=== PATIENT | female | born 1965 | race Caucasian/White ===

== ENCOUNTER 2017-02-26 06:49 | Day surgery (SDC) | payer BC ==
[2017-02-21 08:40] VITALS: BMI 27.3
[~2017-02-26 06:49] MED LIST: DEXAMETHASONE SOD PHOSPHATE 10 MG/ML 1 ML VIAL IV ONE; HYDROmorphone 1 MG/ML 1 ML SYRINGE IVP PRN; LACTATED RINGERS 1,000 ML IV SCH; LIDOCAINE 1% 20 ML VIAL (10MG/ML) FOR IV START INTRADERMA PRN; MIDAZOLAM 2 MG/2 ML VIAL IV PRN; ONDANSETRON 4 MG/2 ML VIAL IVP ONE; Pre Op ABX Message 1 EACH MISC MISCELLANE ONE; SCOPOLAMINE 1.5MG/72HR PATCH TRANSDERM ONE
[2017-02-26] MEDS ORDERED: ceFAZolin 2 GM in SODIUM CHLORIDE 0.9% 100 ML IVPB STA (08:29)
[2017-02-26] MEDS ORDERED: MIDAZOLAM 2 MG/2 ML VIAL ONE (08:41)
[2017-02-26] MEDS ORDERED: LIDOCAINE 1% INJ 10MG/ML (20 ML MDV) ONE (08:41)
[2017-02-26] MEDS ORDERED: ePHEDrine 50 MG/ML 1 ML AMP ONE (08:41)
[2017-02-26] MEDS ORDERED: PHENYLEPHRINE-0.9% NACL SYG 1 MG/10 ML SYRINGE ONE (08:41)
[2017-02-26] MEDS ORDERED: PROPOFOL 10 MG/ML 20 ML VIAL IV ONE (08:41)
[2017-02-26] MEDS ORDERED: fentaNYL (PF) 50 MCG/ML 2 ML AMP ONE (08:41)
[2017-02-26] MEDS ORDERED: SUCCINYLCHOLINE CHLORIDE 100 MG/5 ML SYR IV ONE (08:41)
[2017-02-26 10:55] VITALS: TEMP 98
[2017-02-26] MEDS ORDERED: ONDANSETRON 4 MG/2 ML VIAL IVP ONE (12:37)
[2017-02-26 12:47] VITALS: RESP 18
[2017-02-26 13:01] VITALS: BP 117/80; PULSE 76
--- NOTE | 2017-02-26 20:49 | OP ---
DATE OF SERVICE: 02/26/2017 SURGEON: MARY ASHBY MD PREOPERATIVE DIAGNOSES: 1. Acquired loss of right and left breast. 2. Personal history of ductal carcinoma in situ, bilateral breasts. 3. Acquired deformity of right and left reconstructive breasts. 4. Acquired loss, right and left breast inframammary folds. POSTOPERATIVE DIAGNOSES: 1. Acquired loss, right and left breast. 2. Personal history of bilateral ductal carcinoma in situ, bilateral breasts. 3. Acquired deformity of right and left reconstructive breasts. 4. Acquired loss, right and left breast inframammary folds. OPERATIVE PROCEDURES: 1. Replacement of left breast tissue steel sampler with silicone breast implant for left breast reconstruction. 2. Replacement of right breast tissue steel sampler with silicone breast implant for breast reconstruction. 3. Revision left reconstructed breast. 4. Revision right reconstructed breast. 5. Reconstruction of right and left breast inframammary folds via local advancement flaps, 58 sq cm. 6. Implantation of reconstructive grafts for right and left breast reconstruction. OPERATIVE INDICATIONS: The patient is a 51-year-old female who has undergone bilateral nipple-sparing mastectomy procedures for ductal carcinoma in situ. She elected to proceed with immediate breast reconstruction via tissue steel sampler technique and has completed subsequent outpatient expansion. Significant deformities of the reconstructive breasts are present, both causing asymmetry and distortion of shape and contour. The patient's inframammary folds have also been effaced and malpositioned by the mastectomy reconstructive processes. She is returning to surgery today for the second stage of her breast reconstruction, which will include replacement of tissue expanders, insertion of silicone breast implants, revision of right and left reconstructive breasts to improve shape and contour irregularities, and reconstruction of right and left inframammary folds via local advancement flaps. She understands the potential risks and complications of the procedure and has requested I perform the surgery. OPERATIVE PROCEDURE SUMMARY: The patient was seen in the pre-surgical area. Markings were made, procedure reviewed, all questions answered. She was transported to the operating room, where she was placed in supine position. Following induction of general endotracheal anesthesia, the patient was prepped and draped in the usual fashion. All surgery was performed under loupe magnification. The patient's prior mastectomy procedures were performed through a subareolar transverse incision on both sides. These areas were re-marked for the incisions for today's surgery. Surgery was initiated on the right side. Incision was made following the diagram placed, dividing the skin in full-thickness fashion followed by use of cauterization to divide subcutaneous tissue and then dissection of skin and subcutaneous tissue off the muscle flap layers, performed with cauterization to release contour irregularities that were present. Extensive dissection was required, hemostasis maintained with cautery. Lower transverse incision was then made through the muscle flap layer, exposing the steel sampler. The steel sampler was then ruptured and removed. The expansion cavity appeared normal. No granulation tissue or exudates. Cavity was irrigated. A complete capsulotomy incision was now made where the capsule joined the chest wall. Then multiple cruciate incisions were made through the capsule itself to release the structure. Additional dissection was performed medially to release tightness that was present in this area causing distortion of shape. This was accomplished with cautery and hemostasis maintained with cautery. Through the inferior capsulotomy incision the skin and subcutaneous tissue flap was then elevated measuring 15 cm transversely by 2 cm vertically. This was in preparation for the advancement flap for reconstruction of inframammary fold. Once created, the skin and subcutaneous tissue flap was advanced cephalad and secured to the chest wall periosteal rib tissue using several interrupted discreet locations with 2-0 Vicryl, creating a discreet right inframammary fold. Irrigation was performed. Hemostasis was excellent. The cavity was packed open with moistened laparotomy sponges. Attention was turned to the patient's left breast. Again following the transverse incision site as marked, skin was divided in a full-thickness fashion with a 10 blade scalpel. Cauterization was used to divide underlying subcutaneous tissue and then skin and subcutaneous tissues were dissected off the muscle flap fascial layers. Extensive dissection was required to release contour irregularities and to allow for optimal draping of the skin and subcutaneous tissue once the implant was placed. Hemostasis was maintained with cautery. Again a low transverse incision was made through the muscle flap layer, exposing the steel sampler. The steel sampler was ruptured and removed. The cavity was irrigated. A complete capsulotomy incision was made where the expansion capsule joined the chest wall, and multiple cruciate incisions through the expansion capsule were performed to release tightness. Additional dissection was performed medially as the capsule and muscle layers were tight there, allowing for more medial position of the breast reconstruction. Through the inferior capsulotomy incision, skin and subcutaneous tissue flap was elevated measuring 14 cm transversely by 2 cm vertically. The flap was elevated with cauterization and contained skin and subcutaneous tissue. Once created, it was advanced in cephalad fashion and then secured to the patient's periosteal rib tissue using interrupted 2-0 Vicryl in several locations, creating a discreet left inframammary fold with good symmetry to the right side. Irrigation was performed. Hemostasis was excellent. Several temporary breast implant sizers were opened on the field and placed into the reconstructive cavities on the right and left sides. Ultimately a 750 mL sizer appeared optimal. This was evaluated with the patient in the seated-up position. She was returned to supine position. Temporary breast implant sizers were removed from the field. Each cavity was re-irrigated. Hemostasis was excellent. Gloves were changed and the right-sided breast implant opened onto the field. The implant was from the [employer], reference #[id number], serial #[id number]. The device measured 750 mL in volume and was only handled by the surgeon. It was irrigated with saline and inserted in the reconstructive cavity. Once present, the muscle flap layer could not be approximated over the implant without causing significant creasing. Therefore SurgiMend reconstructive graft was opened onto the field and, as this was anticipated for the left side, at this point 2 pieces were opened measuring 10 x 15 cm, thin and fenestrated. They were soaked in room-temperature saline. The first piece of SurgiMend was placed on the right side and placed deep to the muscle flap layer over the implant and secured to the muscle flap layer, the cephalad portion, using interrupted 3-0 Vicryl. Then the SurgiMend was allowed for wrapping the lower pole of the implant in inferior sling technique and then was secured to the portion of muscle flap that remained just above the inframammary fold. Complete coverage was obtained without causing distortion of the implant in this manner. Irrigation was performed. Hemostasis was excellent. The incision was closed ( ) deep dermal layer using inverted interrupted 4-0 Monocryl. Gloves were again changed, the second breast implant opened on the field, also from the [employer], 750 mL in volume. Same reference number. The serial number for the left-sided device was [id number]. Device was only handled by the surgeon. After irrigating with saline, it was inserted in the reconstructive cavity. Once positioned, the SurgiMend was then placed and guided under the muscle flap tissue but over the implant and then also covered the lower pole of the implant. The SurgiMend was inset to the muscle flap layer using interrupted 3-0 Vicryl sutures. Complete coverage was obtained without distortion of the implant. Irrigation was performed. Hemostasis was excellent. This incision was now closed ( ) deep dermal layer using inverted interrupted 4-0 Monocryl. The superficial dermis and epidermis were closed on both sides with running 5-0 Prolene. Surgical field was cleansed with saline, dried, and postoperative bandages were placed using sterile one-inch paper tape, Kerlix squares secured paper tape and then positioning a size 3 mammary support with additional gauze padding. The patient was then awakened from her anesthetic, extubated and transferred to the recovery room in good condition with stable vital signs. There were no complications.
== END 2017-02-26 13:24 | disposition home or self-care (01) ==
LOC: OR 06:49
PROVIDERS: ATTEND Plastic Surgery
DX: Z42.1 Encounter for breast reconstruction following mastectomy (principal); N65.0 Deformity of reconstructed breast; Z90.13 Acquired absence of bilateral breasts and nipples; Z85.3 Personal history of malignant neoplasm of breast; R00.1 Bradycardia, unspecified; R01.1 Cardiac murmur, unspecified; Z88.8 Allergy status to other drugs, medicaments and biological substances; Z91.040 Latex allergy status; Z79.899 Other long term (current) drug therapy
CPT/HCPCS: 93005; 19342; J2250; J1100; J0690; J2405; J2001; J3010; J1170; J2370; J0330; J2704; 81025

== ENCOUNTER → 2017-04-08 | Outpatient (CLI) | payer BC ==
--- NOTE | 2017-04-09 07:14 | WWHP ---
DATE OF SERVICE: 04/08/2017 CHIEF COMPLAINT: The patient is here for her routine gynecologic exam. HPI: This is a 51-year-old G3, P3 with an LMP of 04/05/17. She states her periods have been fairly infrequent and unpredictable. She had periods in 02/02, 07/05 and 02/03. During the past 3 months, the periods have been about monthly. She states they have been fairly painful and crampy and she has taken Motrin for this. She is status post endometrial ablation but she has had periods since the ablation. She was found to have breast cancer and this was picked up by last year's mammogram. She ended up having a biopsy, which showed right carcinoma in situ. She decided to have bilateral mastectomies and carcinoma in situ was also found in the left breast. She did not require chemotherapy or radiation therapy. PAST MEDICAL HISTORY: Bilateral breast cancer, stage 0 diagnosed in 2016, not requiring adjuvant therapy and she is status post bilateral mastectomies. Also history of cardiac arrhythmia, mitral valve regurgitation and early glaucoma. MEDICATIONS: 1. Coreg 6.25 mg half tablet b.i.d. 2. Roseanna 1 daily. 3. Calcium with vitamin D3, 600 mg b.i.d. 4. Osteo Bi-Flex b.i.d. 5. Multivitamin daily. 6. Timoptic one drop in each eye daily. Allergies to MINOCIN and BENADRYL. PAST SURGICAL HISTORY: Endometrial ablation in 2005 by myself, breast biopsy, and bilateral mastectomies in 2015, bilateral silicone breast implants in 03/05, colonoscopy 2005. 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 She has no other history of STDs. SOCIAL HISTORY: She denies tobacco and drug use and has about 2 alcoholic drinks per month. 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 FAMILY HISTORY: Unchanged from the 2016 H&P. REVIEW OF SYSTEMS: She has lost about 10 pounds over the last year. She denies respiratory, cardiac, or GI problems. PHYSICAL EXAM: Blood pressure 130/86. Height 5 feet 4 inches. Weight 154 pounds. Temperature 98.5, pulse 54. This is a well-developed, well-nourished white female who is alert and oriented x3 in no acute distress. HEENT is within normal limits. NECK: Supple without mass or thyromegaly. CHEST AND LUNGS: Clear to auscultation. HEART: Regular rate and rhythm. Breasts are consistent with bilateral implants. Her fairly recent incisions are clean, dry and intact. There are no palpable masses or tenderness. Axillary exam is negative for adenopathy. BACK: Negative for CVA tenderness. ABDOMEN: Soft, nontender, without palpable masses. PELVIC EXAM: Normal external genitalia. Cervix and vagina appear normal. There is a grade 1 cystocele and grade 1 uterine prolapse at rest. There is also a grade 1 to 2 rectocele noted. The uterus is midposition, nongravid size and nontender. There are no palpable adnexal masses or tenderness. Rectovaginal exam is negative for mass or tenderness and is negative for occult blood. EXTREMITIES: Nontender. IMPRESSION: 1. A 51-year-old perimenopausal female with normal gynecologic exam. 2. History of bilateral breast cancer, stage 0 and she is status post bilateral nipple sparing mastectomies and has bilateral silicone implants. There is no evidence of recurrence. PLAN: 1. Pap smear was deferred, since she had a normal one last year. 2. Self-breast examination was discussed. 3. She was told by her surgeon that she will not require mammograms because of the bilateral mastectomies. 4. The patient will keep a menstrual calendar and call if she is having menstrual problems. 5. She will follow up with Dr. Lancaster regarding her breast cancer. 6. She will return in one year.
== END | disposition home or self-care (01) ==
LOC: WWCWWP 15:00
PROVIDERS: ATTEND Obstetrics & Gynecology
DX: Z53.9 Procedure and treatment not carried out, unspecified reason (principal)

== ENCOUNTER → 2017-07-24 | Outpatient (CLI) | payer BC ==
[2017-07-24 10:21] LABS: CH 31.4; CHCM 33.5; HCT 43.8 % (34.0-46.0); HDW 2.25; MCH 30.1 pg (25.0-35.0); MCV 94.3 fL (80.0-100.0); Mean Platelet Volume 9.7; RBC 4.65 m/uL (3.80-5.40); RDW 13.4 % (11.5-15.5); WBC 5.1 k/uL (3.8-10.6)
[2017-07-24 10:39] LABS: ALT 39 U/L (9-52); AST 29 U/L (14-36); Alkaline Phosphatase 75 U/L (38-126); Anion Gap 9 mmol/L; Blood Urea Nitrogen 20 mg/dL (7-17); Calcium 10.2 mg/dL (8.4-10.2); Carbon Dioxide 31 mmol/L (22-30); Chloride 103 mmol/L (98-107); Glucose 100 mg/dL (74-99); Non-African American GFR(MDRD) >60 (>60 ml/min/1.73 sqM); Sodium 143 mmol/L (137-145); Total Bilirubin 0.8 mg/dL (0.2-1.3); Total Protein 7.7 g/dL (6.3-8.2)
== END | disposition home or self-care (01) ==
LOC: LABWHC1 09:18
PROVIDERS: ATTEND Surgery
DX: Z15.01 Genetic susceptibility to malignant neoplasm of breast (principal)
CPT/HCPCS: 36415; 80053; 85027; 86300

== ENCOUNTER → 2018-05-06 | Outpatient (CLI) | payer BC ==
[2018-05-06 08:53] VITALS: BP 126/69; PULSE 52; TEMP 96.8; BMI 26.4
--- NOTE | 2018-05-06 09:45 | P.HPOB ---
History of Present Illness H&P Date: 05/06/18 Chief Complaint: The patient is here for her routine gynecologic exam. This is a 52-year-old G3 PIII with an LMP of 02/15/2018. Menses have been infrequent during the past 2 years. She has had 3 light menstrual periods over the past year in June 2017, December 2017 and her LMP. Each of these were light and lasted 5 or less days. She has had variable hot flashes during the year. Hot flashes were worse in July, but are improved more recently. She has had some cramping during the menses. She is without complaints. She has not been amenorrhea, for 12 months. She is status post endometrial ablation in the past. Review of Systems Weight has been stable. She denies respiratory, cardiac, or G.I. problems. Past Medical History Past Medical History: Cancer (Bilateral breast CIS status post bilateral mastectomies in 2015), Eye Disorder (Glaucoma) Additional Past Medical History / Comment(s): No adjuvant treatment for breast CA. mitral valve regurgitation, heart arrythmia. 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 No other history of STDs. History of Any Multi-Drug Resistant Organisms: None Reported Past Surgical History: Breast Surgery Additional Past Surgical History / Comment(s): reggie mastectomy 2015, Reggie breast silicone implants 2017, endometrial ablation 2005. Colonoscopy 2005. Past Anesthesia/Blood Transfusion Reactions: Family History of Problems w/ Anesthesia Additional Past Anesthesia/Blood Transfusion Reaction / Comment(s): Patient had hard time coming out of anesthesia; had to have Narcan. Pt's Mother had the same issue. Past Psychological History: No Psychological Hx Reported Smoking Status: Never smoker Past Alcohol Use History: Occasional (3 per week) Additional Past Alcohol Use History / Comment(s): Patient is a nonsmoker. No medical marijuana, marijuana or street drug use. She admits to social alcohol use. Past Drug Use History: None Reported Additional History: She's been since 1997. 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 - Past Family History Mother Family Medical History: Hypertension, Rheumatoid Arthritis (RA) Father Family Medical History: Hypertension Brother(s) Family Medical History: No Reported History Daughter(s) Family Medical History: No Reported History Son(s) Family Medical History: No Reported History Medications and Allergies Home Medications Medication Instructions Recorded Confirmed Type Calcium Carbonate/Vitamin D3 1 tab PO BID 05/20/16 02/26/17 History [Calcium 600-Vit D3 200 Tablet] Glucosamine/Chondr [place] A Sod [Osteo 1 tab PO BID 05/20/16 02/26/17 History Bi-Flex Caplet] Multivitamins, Thera [Multivitamin] 1 tab PO DAILY 05/20/16 02/26/17 History Carvedilol [Coreg] 3.125 mg PO BID 07/09/16 02/26/17 History Timolol 0.5% Ophth Gel Forming 1 drop BOTH EYES DAILY 07/09/16 02/26/17 History [Timoptic-Xe 0.5% Gel Form] Fexofenadine HCl [Roseanna Allergy] 180 mg PO DAILY 02/21/17 02/26/17 History Hydrocodone/Acetaminophen [[employer] 1 - 2 each PO Q6HR PRN #60 tab 02/26/17 Rx 5-325] Allergies Allergy/AdvReac Type Severity Reaction Status Date / Time latex Allergy Rash/Hives Verified 05/06/18 08:50 minocycline HCl Allergy Anaphylaxis Verified 05/06/18 08:50 [From Minocin] diphenhydramine HCl AdvReac paradoxical Verified 05/06/18 08:50 [From Benadryl] excitation Exam Vital Signs Temp Pulse BP 05/06/18 08:50 96.8 F L 52 L 126/69 Intake and Output 05/05/18 05/06/18 05/06/18 22:59 06:59 14:59 Other: Weight 69.853 kg This is a well-developed well-nourished white female who is alert and oriented times 3 in no acute distress. HEENT: Within normal limits. NECK: Supple without mass or thyromegaly. CHEST AND LUNGS: Clear to auscultation. HEART: Regular rate and rhythm. BREASTS: Are without mass or discharge. Breasts are consistent with bilateral implants. AXILLARY EXAM: Negative for adenopathy. BACK: Negative for CVA tenderness. ABDOMEN: Soft, nontender, without palpable masses. PELVIC EXAM: Normal external genitalia with minimal atrophy. Cervix and vagina appear normal minimal atrophy. There is no unusual discharge. There is a grade one cystocele and a grade one rectocele. The uterus is midposition, nongravid size and nontender. There are no palpable adnexal masses or tenderness. RECTAL EXAM: rectovaginal exam is negative for mass or tenderness and is negative for occult blood. EXTREMITIES: Nontender. IMPRESSION: 1. 52-year-old perimenopausal female with oligomenorrhea and intermittent vasomotor symptoms. 2. Asymptomatic grade 1 cystocele and grade 1 rectocele. 3. History of bilateral breast CIS status post bilateral mastectomies with reconstruction with bilateral silicone implants. No evidence of recurrence. PLAN: 1. Pap smear was performed. 2. The patient will continue to follow-up with Dr. Lancaster regarding her breast cancer history. Mammograms have been discontinued. 3. She will continue to keep up menstrual calendar. She will call if she's having greater menstrual irregularity, bleeding after 12 months of amenorrhea or polymenorrhea. 4. Osteoporosis prevention was discussed. 5. She will return in one year and PRN.
== END | disposition home or self-care (01) ==
LOC: WWCWWP 08:34
PROVIDERS: ATTEND Obstetrics & Gynecology
DX: Z53.9 Procedure and treatment not carried out, unspecified reason (principal)

== ENCOUNTER → 2018-07-23 | Outpatient (CLI) | payer BC ==
[2018-07-23 11:15] LABS: Basophils % (A) 1 %; Eosinophils # (A) 0.2 k/uL (0-0.7); Eosinophils % (A) 5 %; HCT 43.8 % (34.0-46.0); HGB 13.9 gm/dL (11.4-16.0); Lymphocytes # (A) 1.5 k/uL (1.0-4.8); Lymphocytes % (A) 31 %; MCH 29.8 pg (25.0-35.0); MCHC 31.8 g/dL (31.0-37.0); MCV 93.9 fL (80.0-100.0); Mean Platelet Volume 8.4; Monocytes # (A) 0.2 k/uL (0-1.0); Monocytes % (A) 4 %; Neutrophils # (A) 2.7 k/uL (1.3-7.7); Neutrophils % (A) 57 %; Platelet Count 240 k/uL (150-450); RBC 4.67 m/uL (3.80-5.40); RDW 12.3 % (11.5-15.5); WBC 4.7 k/uL (3.8-10.6)
[2018-07-23 11:23] LABS: ALT 57 U/L (9-52); AST 58 U/L (14-36); Albumin 4.2 g/dL (3.5-5.0); Alkaline Phosphatase 90 U/L (38-126); Anion Gap 7 mmol/L; Blood Urea Nitrogen 14 mg/dL (7-17); Calcium 10.1 mg/dL (8.4-10.2); Carbon Dioxide 31 mmol/L (22-30); Chloride 104 mmol/L (98-107); Glucose 97 mg/dL (74-99); Potassium 5.6 mmol/L (3.5-5.1); Sodium 142 mmol/L (137-145); Total Bilirubin 0.5 mg/dL (0.2-1.3); Total Protein 7.3 g/dL (6.3-8.2)
== END | disposition home or self-care (01) ==
LOC: LABWHC1 09:42
PROVIDERS: ATTEND Surgery
DX: C50.911 Malignant neoplasm of unspecified site of right female breast (principal)
CPT/HCPCS: 36415; 80053; 85025; 86300

== ENCOUNTER → 2018-07-30 | Outpatient (CLI) | payer BC ==
--- NOTE | 2018-07-30 15:08 | USB ---
Reason for exam: clinical finding. History: Patient has history of breast cancer at age 50. Reconstructions of both breasts, February 2017. Mastectomy of both breasts, June 2016. Malignant MG stereo VAD BX RT of the right breast, May 17, 2016. Physical Findings: Nurse Summary: Patient complains of fullness left axilla, palpated by Dr. Lynch's TOPPIECE CUTTER today, questionable nodule left 3 o'clock (nurse mj). US Breast Axilla RT Right limited breast ultrasound including focal area of concern, retroareolar and axilla demonstrates no cystic or solid lesion seen. These results were verbally communicated with the patient and result sheet given to the patient on 07/30/18. ASSESSMENT: Benign, BI-RAD 2 RECOMMENDATION: Clinical management of the right breast. Manage patient on a clinical basis.
--- NOTE | 2018-07-30 15:10 | USB ---
Reason for exam: clinical finding. History: Patient has history of breast cancer at age 50. Reconstructions of both breasts, February 2017. Mastectomy of both breasts, June 2016. Malignant MG stereo VAD BX RT of the right breast, May 17, 2016. Physical Findings: Nurse Summary: Patient complains of fullness left axilla, palpated by Dr. Lynch's BURNISHING MACHINE OPERATOR today, questionable nodule left 3 o'clock (nurse mj). US Breast Axilla LT Left limited breast ultrasound including focal area of concern, retroareolar and axilla demonstrates a 2.3 x 0.8cm oval, lymph node at axilla at BB, appears benign lymph node. Prominent implant valve 3 o'clock left breast. These results were verbally communicated with the patient and result sheet given to the patient on 07/30/18. ASSESSMENT: Benign, BI-RAD 2 RECOMMENDATION: Clinical management of the left breast. Manage patient on a clinical basis.
== END | disposition home or self-care (01) ==
LOC: RADUSWWP 14:14
PROVIDERS: ATTEND Internal Medicine Hematology & Oncology
DX: Z08 Encounter for follow-up examination after completed treatment for malignant neoplasm (principal); Z85.3 Personal history of malignant neoplasm of breast

== ENCOUNTER → 2018-08-04 | Outpatient (CLI) | payer BC ==
--- NOTE | 2018-08-04 14:16 | NM ---
EXAMINATION TYPE: NM bone scan whole body DATE OF EXAM: 08/04/2018 COMPARISON: NONE HISTORY: Breast cancer Delayed whole-body scanning was performed following the injection of 23.8 mCi Tc 99m MDP. Images acq uired 3 hours post injection. FINDINGS: Abnormal uptake involving the sternoclavicular joints, shoulders, knees, and feet is most typical of post arthritic change. There is slight curvature the spine with no suspicious reduced or increased uptake. Variation uptake involving the rib cage likely secondary to soft tissue artifact. There is increased uptake involving L5 likely degenerative. IMPRESSION: 1. No diagnostic evidence of metastases. Abnormal uptake at L5 likely is degenerative and could be co rrelated with x-ray as clinically warranted. 2. There is slightly heterogeneous pattern to the rib cage which likely is related to artifact with s oft tissue. If there is a pain involving the lower rib cage anteriorly correlate with x-ray.
== END | disposition home or self-care (01) ==
LOC: RADNMMAIN 09:55
PROVIDERS: ATTEND Internal Medicine Hematology & Oncology
DX: D05.11 Intraductal carcinoma in situ of right breast (principal); Z91.040 Latex allergy status
CPT/HCPCS: 78306; A9503

== ENCOUNTER → 2018-09-05 | Outpatient (CLI) | payer BC ==
--- NOTE | 2018-09-07 12:57 | PE ---
Nuclear medicine PET/CT HISTORY: Breast carcinoma, initial Patient received 11.4 mCi F-18 FDG intravenously in delayed scanning was performed from the skull bas e to the mid thighs. Localization and attenuation correction CT scan was performed. Correlation to bone scan 08/04/2018. Neck and chest: There is no evident supraclavicular cervical adenopathy. No evident axillary, hilar, or mediastinal adenopathy. No lung mass or suspicious hypermetabolic uptake. Bilateral breast prosthe ses are present. Surgical clips present in the right axilla. Abdomen pelvis: There is no ascites or retroperitoneal adenopathy. No evident lung mass. No evident l iver mass, no suspicious hypermetabolic uptake. Osseous structures are essentially normal, facet arthropathy is noted at the lower lumbar spine. IMPRESSION: No evident metastasis. No suspicious hypermetabolic uptake.
== END | disposition home or self-care (01) ==
LOC: RADPETMAIN 12:09
PROVIDERS: ATTEND Internal Medicine Hematology & Oncology
DX: D05.11 Intraductal carcinoma in situ of right breast (principal)
CPT/HCPCS: 78815; A9552

== ENCOUNTER → 2018-10-30 | Outpatient (CLI) | payer BC ==
--- NOTE | 2018-11-05 07:43 | USB ---
History: Patient has history of breast cancer at age 50. Reconstructions of both breasts, February 2017. Mastectomy of both breasts, June 2016. Malignant MG stereo VAD BX RT of the right breast, May 17, 2016. Physical Findings: Nurse did not find any significant physical abnormalities on exam. Patient states lteft axillary node stable in size. US Breast Axilla LT limited breast ultrasound including focal area of concern, retroareolar and axilla demonstrates a 2.7 x 1.0 x 1.2 cm axilla hyperechoic node. Previously measuring similar, essentially unchanged when measured in a similar fashion. These results were verbally communicated with the patient and result sheet given to the patient on 10/30/18. ASSESSMENT: Benign, BI-RAD 2 RECOMMENDATION: Clinical management. Routine screening mammogram.
== END | disposition home or self-care (01) ==
LOC: RADUSWWP 09:02
PROVIDERS: ATTEND Surgery
DX: N63.20 Unspecified lump in the left breast, unspecified quadrant (principal); Z85.3 Personal history of malignant neoplasm of breast; Z90.12 Acquired absence of left breast and nipple

== ENCOUNTER → 2018-12-16 | Day surgery (SDC) | payer BC ==
[2018-12-16 12:43] VITALS: RESP 16; TEMP 97.7; BMI 25.4
--- NOTE | 2018-12-16 13:46 | USB ---
ULTRASOUND GUIDED CORE BIOPSY LEFT AXILLA MASS: CLINICAL HISTORY: Left axilla lymph node FINDINGS: The procedure was explained to the patient. The risks, complications, benefits and alternatives were discussed and any questions were answered. Informed consent was obtained. Patient was placed supine on the ultrasound table and prepped and draped in the usual sterile fashion. Utilizing a exiting gauge needle, 3 passes were made into the requested left axilla lymph node. Surgical clip placed post procedure. Patient was stable throughout the procedure. Pathology is pending. All elements of maximal barrier and sterile technique were utilized. IMPRESSION: 1. Successful ultrasound guided core biopsy left axillary lymph node. Pathology pending. Pathology Results: Benign LEFT AXILLARY LESION, NEEDLE CORE BIOPSIES: Benign lymphoid tissue admixed with adipose tissue, negative for metastatic breast cancer. Recommendation Therapy of primary cancer. MTDD
[2018-12-16 14:47] VITALS: BP 144/80; PULSE 50
== END | disposition home or self-care (01) ==
LOC: RADUSWWP 12:25
PROVIDERS: ATTEND Surgery
DX: R92.8 Other abnormal and inconclusive findings on diagnostic imaging of breast (principal); Z85.3 Personal history of malignant neoplasm of breast; Z88.3 Allergy status to other anti-infective agents; Z91.040 Latex allergy status; Z88.8 Allergy status to other drugs, medicaments and biological substances
CPT/HCPCS: 88305; 38505; A4648; J2001

== ENCOUNTER → 2019-06-08 | Outpatient (CLI) | payer BC ==
[2019-06-08 11:16] VITALS: BP 131/77; PULSE 78; RESP 18; TEMP 98; BMI 26.2
--- NOTE | 2019-06-08 12:06 | P.HPOB ---
History of Present Illness H&P Date: 06/08/19 Chief Complaint: The patient is here for her routine gynecologic exam. This is a 53 year old G3 PIII with an LMP of 10/20/2018. Her LPMP was in April 2018. Prior to her last annual exam, she had 3 light menstrual periods. During the past 12 months, she had one bleeding episode 7 months ago. She has yet to go 12 full months without vaginal bleeding. She still experiences hot flashes but they seem to be improving. She is without gynecologic complaints. She is status post endometrial ablation in the past. Review of Systems The patient's weight has been stable over the last year. She denies respiratory, cardiac, or G.I. problems. 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 Mitral valve regurgitation, heart arrythmia, glaucoma. 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 No other history of STDs. History of Any Multi-Drug Resistant Organisms: None Reported Past Surgical History: Breast Surgery Additional Past Surgical History / Comment(s): reggie mastectomy 2015, Reggie breast silicone implants 2017, endometrial ablation 2005. Colonoscopy 2016(2nd). Left axillary lymph node biopsy 2018. Past Anesthesia/Blood Transfusion Reactions: Family History of Problems w/ Anesthesia Additional Past Anesthesia/Blood Transfusion Reaction / Comment(s): Patient had hard time coming out of anesthesia; had to have Narcan. Pt's Mother had the same issue. Past Psychological History: No Psychological Hx Reported Smoking Status: Never smoker Past Alcohol Use History: Occasional (5 per week) Additional Past Alcohol Use History / Comment(s): Patient is a nonsmoker. No medical marijuana, marijuana or street drug use. She admits to social alcohol use. Past Drug Use History: None Reported Additional History: She has been since 1997. 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 - Past Family History Mother Family Medical History: Hypertension, Rheumatoid Arthritis (RA) Father Family Medical History: Hypertension Brother(s) Family Medical History: No Reported History Daughter(s) Family Medical History: No Reported History Son(s) Family Medical History: No Reported History Medications and Allergies Home Medications Medication Instructions Recorded Confirmed Type Glucosamine/Chondr Chester A Sod [Osteo 1 tab PO BID 05/20/16 06/08/19 History Bi-Flex Caplet] Multivitamins, Thera [Multivitamin] 1 tab PO DAILY 05/20/16 06/08/19 History Timolol 0.5% Ophth Gel Forming 1 drop BOTH EYES DAILY 07/09/16 06/08/19 History [Timoptic-Xe 0.5% Gel Form] Fexofenadine HCl [Roseanna Allergy] 180 mg PO DAILY 02/21/17 06/08/19 History Vit C/E/Zn/Coppr/Lutein/Zeaxan 1 each PO DAILY 11/20/18 06/08/19 History [Preservision Areds 2 Softgel] Cyanocobalamin [Vitamin B-12] 500 mcg PO DAILY 06/08/19 06/08/19 History Allergies Allergy/AdvReac Type Severity Reaction Status Date / Time latex Allergy Rash/Hives Verified 06/08/19 11:16 minocycline HCl Allergy Anaphylaxis Verified 06/08/19 11:16 [From Minocin] diphenhydramine HCl AdvReac paradoxical Verified 06/08/19 11:16 [From Benadryl] excitation Exam Vital Signs Temp Pulse Resp BP Pulse Ox 06/08/19 11:13 98.0 F 78 18 131/77 98 Intake and Output 06/07/19 06/08/19 06/08/19 22:59 06:59 14:59 Other: Weight 69.4 kg Height 5'4", weight 153 pounds, BMI 26.3. This is a well-developed well-nourished white female who is alert and oriented times 3 in no acute distress. HEENT: Within normal limits. NECK: Supple without mass or thyromegaly. CHEST AND LUNGS: Clear to auscultation. HEART: Regular rate and rhythm. BREASTS: Are without mass or discharge. Breasts are consistent with bilateral mastectomies with bilateral implants. AXILLARY EXAM: Negative for adenopathy. BACK: Negative for CVA tenderness. ABDOMEN: Soft, nontender, without palpable masses. PELVIC EXAM: Normal external genitalia with minimal atrophy. Cervix and vagina appear normal with minimal atrophy. There is no unusual discharge. There is a grade one cystocele and grade 1 rectocele which are stable. The uterus is midposition, nongravid size and nontender. There are no palpable adnexal masses or tenderness. RECTAL EXAM: rectovaginal exam is negative for mass or tenderness and is negative for occult blood. EXTREMITIES: Nontender. IMPRESSION: 1. 53-year-old perimenopausal female with 7 months of amenorrhea and mild vasomotor symptoms. 2. History of bilateral breast CIS status post bilateral mastectomies in 2016. No evidence of recurrence on exam today. PLAN: 1. Pap smear was deferred since she had a normal one on 05/06/2018. 2. Self breast awareness was discussed with the patient. 3. Mammograms have been discontinued because of her history of bilateral mastectomies. 4. Osteoporosis prevention was discussed. I have stressed the importance of adequate calcium, vitamin D and regular exercise. Recommended amounts of calcium and vitamin D were also discussed. 5. She was advised to return in one year for her annual well woman exam.
== END | disposition home or self-care (01) ==
LOC: WWCWWP 10:58
PROVIDERS: ATTEND Obstetrics & Gynecology
DX: Z53.9 Procedure and treatment not carried out, unspecified reason (principal)

== ENCOUNTER → 2019-07-16 | Outpatient (CLI) | payer BC ==
--- NOTE | 2019-07-16 14:36 | XR ---
EXAM TYPE: LUMBAR SPINE X RAY SERIES COMPARISON: NONE HISTORY: Low back pain TECHNIQUE: Three views are submitted. FINDINGS: Alignment is anatomic. The pedicles are intact. The transverse processes are intact. There is grad e 1 anterolisthesis L4 on L5 with severe facet arthropathy at L4-5 and L5-S1. Moderate degenerative d isc disease levels. There is moderate facet arthropathy at L2-3 and L3-L4. No compression deformities IMPRESSION: 1. Multilevel degenerative disc disease with facet arthropathy and grade 1 anterolisthesis L4 on L5.
== END | disposition home or self-care (01) ==
LOC: RADXRMAIN 14:11
PROVIDERS: ATTEND Internal Medicine Geriatric Medicine
DX: M43.16 Spondylolisthesis, lumbar region (principal); M51.36 Other intervertebral disc degeneration, lumbar region; M46.96 Unspecified inflammatory spondylopathy, lumbar region
CPT/HCPCS: 72100

== ENCOUNTER → 2019-07-17 | Outpatient (CLI) | payer BC ==
[2019-07-17 09:56] LABS: Basophils % (A) 0 %; Eosinophils # (A) 0.1 k/uL (0-0.7); Eosinophils % (A) 2 %; HCT 39.3 % (34.0-46.0); HGB 13.5 gm/dL (11.4-16.0); Lymphocytes # (A) 1.9 k/uL (1.0-4.8); Lymphocytes % (A) 32 %; MCH 30.1 pg (25.0-35.0); MCHC 34.4 g/dL (31.0-37.0); MCV 87.4 fL (80.0-100.0); Mean Platelet Volume 7.5; Monocytes # (A) 0.2 k/uL (0-1.0); Monocytes % (A) 3 %; Neutrophils # (A) 3.6 k/uL (1.3-7.7); Neutrophils % (A) 61 %; Platelet Count 304 k/uL (150-450); RBC 4.49 m/uL (3.80-5.40); RDW 12.3 % (11.5-15.5); WBC 5.9 k/uL (3.8-10.6)
[2019-07-17 13:39] LABS: Erythrocyte Sedimentation Rate 12 mm/hr (0-20)
[2019-07-17 17:03] LABS: ALT 26 U/L (8-44); AST 28 U/L (13-35); African American GFR (CKD) 95.5 (60.0-200.0); Albumin/Globulin Ratio 1.95 (1.60-3.17); Alkaline Phosphatase 113 U/L (41-126); C Reactive Protein <0.4 mg/dL (0.0-0.8); Calcium 9.5 mg/dL (8.7-10.3); Carbon Dioxide 30.7 mmol/L (21.6-31.8); Chloride 105 mmol/L (96-109); Chol/HDL Ratio 4.76; Cholesterol 257 mg/dL (0-200); Globulin 2.2 g/dL (1.6-3.3); Glucose 93 mg/dL (70-110); LDL Cholesterol,Calculated 172.4 mg/dL (0.0-131.0); Potassium 4.3 mmol/L (3.5-5.5); Sodium 141 mmol/L (135-145); Total Bilirubin 0.6 mg/dL (0.3-1.2); Total Protein 6.5 g/dL (6.2-8.2)
[2019-07-17 17:10] LABS: Amylase 130 U/L (23-121)
== END | disposition home or self-care (01) ==
LOC: LABWHC1 08:49
PROVIDERS: ATTEND Internal Medicine Geriatric Medicine
DX: C50.919 Malignant neoplasm of unspecified site of unspecified female breast (principal); E83.52 Hypercalcemia; E78.2 Mixed hyperlipidemia; R10.9 Unspecified abdominal pain
CPT/HCPCS: 36415; 80053; 80061; 82150; 83690; 83970; 84439; 84443; 85025; 85652; 86140

== ENCOUNTER → 2019-07-28 | Outpatient (CLI) | payer BC ==
--- NOTE | 2019-07-28 16:53 | US ---
EXAMINATION TYPE: US abdomen complete DATE OF EXAM: 07/28/2019 COMPARISON: PET/CT September 05, 2018 CLINICAL HISTORY: R10.9 Abdominal Pain. Epigastric pain EXAM MEASUREMENTS: Liver Length: 12.6 cm Gallbladder Wall: 0.2 cm CBD: 0.3 cm Spleen: 10.1 cm Right Kidney: 8.7 x 4.6 x 3.9 cm Left Kidney: 9.0 x 4.4 x 4.7 cm Pancreas: wnl Liver: wnl Gallbladder: Multiple curves visualized Evidence for sonographic Ortega's sign: neg CBD: wnl Spleen: wnl Right Kidney: wnl Left Kidney: wnl Upper IVC: wnl Abd Aorta: Part of distal portion obscured by overlying bowel gas The liver is homogenous. The intrahepatic portion of the IVC and visualized abdominal aorta are with in normal limits. There is no evidence of shadowing mobile cholelithiasis. Common bile duct is unre markable. The visualized portions of the pancreas are homogenous. The spleen is unremarkable. Kidn eys are symmetric and free of hydronephrosis. No renal lesions are seen. IMPRESSION: No acute findings are evident.
== END | disposition home or self-care (01) ==
LOC: RADUSWWP 15:14
PROVIDERS: ATTEND Internal Medicine Geriatric Medicine
DX: R10.9 Unspecified abdominal pain (principal)
CPT/HCPCS: 76700

== ENCOUNTER → 2019-09-29 | Outpatient (CLI) | payer BC ==
--- NOTE | 2019-09-29 09:40 | CT ---
EXAMINATION TYPE: CT abdomen wo/w con DATE OF EXAM: 09/29/2019 COMPARISON: None HISTORY: Epigastric pain CT DLP: 1203.7 mGycm CONTRAST: CT scan of the abdomen is performed with Oral Contrast and without and with IV Contrast, patient inje cted with 100 mL of Isovue 300. FINDINGS: LUNG BASES-: No visible nodule. No infiltrate. Small hiatal hernia seen. LIVER/GB: No calcified gallstones. Hemangioma noted at the dome of the liver measuring approximate ly 1 cm. No additional hepatic space occupying lesions are seen at this time. No space occupying hepa tic lesion. Biliary tree is of normal caliber. PANCREAS: No inflammation. No distinct mass. SPLEEN: No splenic enlargement. No lesion seen. ADRENALS: No nodule. No thickening. KIDNEYS/BLADDER: No hydronephrosis. No nephrolithiasis. No distinct renal mass. Urinary bladder g rossly unremarkable. BOWEL: Visualized gastrointestinal tract is of normal caliber. No inflammatory process identified. LYMPH NODES: No greater than 1cm abdominal or pelvic lymph nodes are appreciated. AORTA: No significant abnormality. OSSEOUS STRUCTURES: No significant abnormality is seen. OTHER: No significant additional abnormality is seen. IMPRESSION: 1. Small hepatic hemangioma. 2. Small hiatal hernia.
== END ==
LOC: RADCTMAIN 07:59
PROVIDERS: ATTEND Internal Medicine Gastroenterology
DX: D18.03 Hemangioma of intra-abdominal structures (principal); K44.9 Diaphragmatic hernia without obstruction or gangrene
CPT/HCPCS: 74170; Q9967

== ENCOUNTER → 2020-06-21 | Outpatient (CLI) | payer BC ==
[2020-06-21 09:34] VITALS: BP 134/82; PULSE 59; RESP 18; TEMP 98
--- NOTE | 2020-06-21 10:09 | P.HPOB ---
History of Present Illness H&P Date: 06/21/20 Chief Complaint: The patient is here for her routine gynecologic exam. This is a 54-year-old with an LMP of April 2018. The patient states her hot flashes have been improving and are very tolerable at this time. She denies any postmenopausal bleeding. She is without gynecologic complaints. Review of Systems The patient has gained 13 pounds over the last year. She denies respiratory, cardiac, or G.I. problems. 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 Mitral valve regurgitation, heart arrythmia, glaucoma. 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 No other history of STDs. History of Any Multi-Drug Resistant Organisms: None Reported Past Surgical History: Breast Surgery Additional Past Surgical History / Comment(s): reggie mastectomy 2015, Reggie breast silicone implants 2016, endometrial ablation 2005. Colonoscopy 2016(2nd). Left axillary lymph node biopsy 2018. Upper endoscopy with removal of precancerous duodenal mass 2019. Past Anesthesia/Blood Transfusion Reactions: Family History of Problems w/ Anesthesia Additional Past Anesthesia/Blood Transfusion Reaction / Comment(s): Patient had hard time coming out of anesthesia; had to have Narcan. Pt's Mother had the same issue. Past Psychological History: No Psychological Hx Reported Smoking Status: Never smoker Past Alcohol Use History: Occasional (4. Week) Additional Past Alcohol Use History / Comment(s): Patient is a nonsmoker. No medical marijuana, marijuana or street drug use. She admits to social alcohol use. 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 - Past Family History Mother Family Medical History: Hypertension, Rheumatoid Arthritis (RA) Father Family Medical History: Hypertension Brother(s) Family Medical History: No Reported History Daughter(s) Family Medical History: No Reported History Son(s) Family Medical History: No Reported History Medications and Allergies Home Medications Medication Instructions Recorded Confirmed Type Glucosamine/Chondr Chester A Sod [Osteo 1 tab PO BID 05/20/16 06/21/20 History Bi-Flex Caplet] Multivitamins, Thera [Multivitamin] 1 tab PO DAILY 05/20/16 06/21/20 History Fexofenadine HCl [Rosaenna Allergy] 180 mg PO DAILY 02/21/17 06/21/20 History Vit C/E/Zn/Coppr/Lutein/Zeaxan 1 each PO DAILY 11/20/18 06/21/20 History [Preservision Areds 2 Softgel] Cyanocobalamin [Vitamin B-12] 500 mcg PO DAILY 06/08/19 06/21/20 History Cholecalciferol [Vitamin D3 (25 2,000 unit PO DAILY 06/21/20 06/21/20 History Mcg = 1000 Iu)] prednisoLONE ACETATE 1% OPHTH 1 drops BOTH EYES BID 06/21/20 06/21/20 History [Pred Forte 1%] Allergies Allergy/AdvReac Type Severity Reaction Status Date / Time latex Allergy Rash/Hives Verified 06/08/19 11:16 minocycline HCl Allergy Anaphylaxis Verified 06/08/19 11:16 [From Minocin] diphenhydramine HCl AdvReac paradoxical Verified 06/08/19 11:16 [From Benadryl] excitation Exam Vital Signs Temp Pulse Resp BP Pulse Ox 06/21/20 09:30 98.0 F 59 L 18 134/82 97 Intake and Output 06/20/20 06/21/20 06/21/20 22:59 06:59 14:59 Other: Weight 75.296 kg Height 5 feet 4 inches, weight 166 pounds, BMI 28.5. This is a well-developed well-nourished white female who is alert and oriented times 3 in no acute distress. HEENT: Within normal limits. NECK: Supple without mass or thyromegaly. CHEST AND LUNGS: Clear to auscultation. HEART: Regular rate and rhythm. BREASTS: Breasts are consistent with bilateral mastectomies with biateral implants and are without mass or discharge. AXILLARY EXAM: Negative for adenopathy. BACK: Negative for CVA tenderness. ABDOMEN: Soft, nontender, without palpable masses. PELVIC EXAM: Normal external genitalia with mild atrophy. Cervix and vagina appear normal with mild atrophy. There is no unusual discharge. There is a small grade 1-2 cystocele and grade 1-2 rectocele which is stable from her previous exams. The uterus is midposition, nongravid size and nontender. There are no palpable adnexal masses or tenderness. RECTAL EXAM: Rectovaginal exam is negative for mass or tenderness and is negative for occult blood. EXTREMITIES: Nontender. IMPRESSION: 1. 54-year-old menopausal female with stable grade 1-2 cystocele and rectocele and otherwise unremarkable gynecologic exam. 2. History of bilateral breast CIS in 2016, status post bilateral mastectomies and implants. No evidence of recurrence on exam. PLAN: 1. Pap smear was performed. 2. Self breast awareness was discussed with the patient. 3. Mammograms have been discontinued as of her bilateral mastectomies. 4. Osteoporosis prevention was discussed. I have stressed the importance of adequate calcium, vitamin D and regular exercise. Recommended amounts of calcium and vitamin D were also discussed. 5. She was advised to return in one year for her annual well woman exam.
--- NOTE | 2020-07-04 09:28 | P.PN ---
Progress Note - Text Progress Note Date: 07/04/20 OUTPATIENT FOLLOW-UP NOTE TEST(S)/RESULTS: Pap smear from 06/21/2020 was negative. METHOD OF NOTIFICATION: A message with this result was left on the patient's voicemail. PATIENT COMMENTS: DIAGNOSIS: Negative Pap smear DISCUSSION: PLAN: She was advised to return in one year for her annual well woman exam.
== END | disposition home or self-care (01) ==
LOC: WWCWWP 09:17
PROVIDERS: ATTEND Obstetrics & Gynecology
DX: Z53.9 Procedure and treatment not carried out, unspecified reason (principal)

== ENCOUNTER → 2021-08-28 | Outpatient (CLI) | payer BC ==
[2021-08-28 14:45] VITALS: BP 131/78; PULSE 64; RESP 16; TEMP 98.2
--- NOTE | 2021-08-28 15:51 | P.HPOB ---
History of Present Illness H&P Date: 08/28/21 Chief Complaint: The patient is here for her routine gynecologic exam. This is a 56-year-old with an LMP of 2018. The patient is without gynecologic complaints and denies any postmenopausal bleeding. Review of Systems The patient has gained 10 pounds over the last year. She denies respiratory, cardiac, or G.I. problems. 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 Mitral valve regurgitation, heart arrythmia, glaucoma. 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 No other history of STDs. History of Any Multi-Drug Resistant Organisms: None Reported Past Surgical History: Breast Surgery Additional Past Surgical History / Comment(s): reggie mastectomy 2015, Reggie breast silicone implants 2016, endometrial ablation 2005. Colonoscopy 2016(2nd). Left axillary lymph node biopsy 2018. 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 Past Anesthesia/Blood Transfusion Reactions: Family History of Problems w/ Anesthesia Additional Past Anesthesia/Blood Transfusion Reaction / Comment(s): Patient had hard time coming out of anesthesia; had to have Narcan. Pt's Mother had the same issue. Past Psychological History: No Psychological Hx Reported Smoking Status: Never smoker Past Alcohol Use History: Occasional (4 per week) Additional Past Alcohol Use History / Comment(s): Patient is a nonsmoker. No medical marijuana, marijuana or street drug use. She admits to social alcohol use. 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 - Past Family History Mother Family Medical History: Hypertension, Rheumatoid Arthritis (RA) Father Family Medical History: Hypertension Brother(s) Family Medical History: No Reported History Daughter(s) Family Medical History: No Reported History Son(s) Family Medical History: No Reported History Medications and Allergies Home Medications Medication Instructions Recorded Confirmed Type Glucosamine/Chondr Chester A Sod [Osteo 1 tab PO BID 05/20/16 08/28/21 History Bi-Flex Caplet] Multivitamins, Thera [Multivitamin] 1 tab PO DAILY 05/20/16 08/28/21 History Fexofenadine HCl [Roseanna Allergy] 180 mg PO DAILY 02/21/17 08/28/21 History Vit C/E/Zn/Coppr/Lutein/Zeaxan 1 each PO DAILY 11/20/18 08/28/21 History [Preservision Areds 2 Softgel] Cyanocobalamin [Vitamin B-12] 500 mcg PO DAILY 06/08/19 08/28/21 History Cholecalciferol [Vitamin D3 (25 2,000 unit PO DAILY 06/21/20 08/28/21 History Mcg = 1000 Iu)] Allergies Allergy/AdvReac Type Severity Reaction Status Date / Time latex Allergy Rash/Hives Verified 08/28/21 14:35 minocycline HCl Allergy Anaphylaxis Verified 08/28/21 14:35 [From Minocin] diphenhydramine HCl AdvReac paradoxical Verified 08/28/21 14:35 [From Benadryl] excitation Exam Vital Signs Temp Pulse Resp BP Pulse Ox 08/28/21 14:36 98.2 F 64 16 131/78 97 Intake and Output 08/28/21 08/28/21 08/28/21 06:59 14:59 22:59 Other: Weight 79.832 kg Height 5 feet 4 inches, weight 176 pounds, BMI 30.2. This is a well-developed well-nourished white female who is alert and oriented times 3 in no acute distress. HEENT: Within normal limits. NECK: Supple without mass or thyromegaly. CHEST AND LUNGS: Clear to auscultation. HEART: Regular rate and rhythm. BREASTS: Are without mass or discharge. Breasts are consistent with bilateral mastectomies with bilateral implants. AXILLARY EXAM: Negative for adenopathy. BACK: Negative for CVA tenderness. ABDOMEN: Soft, nontender, without palpable masses. PELVIC EXAM: Normal external genitalia with mild atrophy. Cervix and vagina appear normal with mild atrophy. There is no unusual discharge. There is no evidence of prolapse. The uterus is midposition, nongravid size and nontender. There are no palpable adnexal masses or tenderness. RECTAL EXAM: Rectovaginal exam is negative for mass or tenderness and is negative for occult blood. EXTREMITIES: Nontender. IMPRESSION: 1. 56-year-old menopausal female with normal gynecologic exam. 2. History of bilateral CIF of the breasts status post bilateral mastectomies with no evidence of recurrence. PLAN: 1. Pap smear was deferred since she had a negative one on 06/21/2020. 2. Self breast awareness was discussed with the patient. We have also discussed symptoms associated with inflammatory breast cancer. 3. Screening mammograms have been discontinued because of her bilateral mastectomies. 4. Osteoporosis prevention was discussed. I have stressed the importance of adequate calcium, vitamin D and regular exercise. Recommended amounts of calcium and vitamin D were also discussed. 5. She was advised to return in one year for her annual well woman exam.
== END | disposition home or self-care (01) ==
LOC: WWCWWP 14:14
PROVIDERS: ATTEND Obstetrics & Gynecology
DX: Z53.9 Procedure and treatment not carried out, unspecified reason (principal)

== ENCOUNTER → 2022-04-12 | Day surgery (SDC) | payer BC ==
[~2022-04-12] MED LIST changes: -DEXAMETHASONE SOD PHOSPHATE 10 MG/ML 1 ML VIAL IV ONE; -HYDROmorphone 1 MG/ML 1 ML SYRINGE IVP PRN; -LIDOCAINE 1% 20 ML VIAL (10MG/ML) FOR IV START INTRADERMA PRN; +LIDOCAINE 2% INJ 20 MG/ML (2 ML VIAL) ONE; -MIDAZOLAM 2 MG/2 ML VIAL IV PRN; -ONDANSETRON 4 MG/2 ML VIAL IVP ONE; +PROPOFOL 10 MG/ML 20 ML VIAL IV ONE; -Pre Op ABX Message 1 EACH MISC MISCELLANE ONE; -SCOPOLAMINE 1.5MG/72HR PATCH TRANSDERM ONE
[2022-04-12 06:45] VITALS: RESP 16; TEMP 97.3
--- NOTE | 2022-04-12 07:28 | P.PCN ---
Date of Procedure: 04/12/22 Procedure(s) Performed: BRIEF HISTORY: Patient is a 56-year-old pleasant white female scheduled for an elective colonoscopy as a part of surveillance evaluation of prior history of colon polyps. Last colonoscopy was 6 years ago. PROCEDURE PERFORMED: Colonoscopy. PREOPERATIVE DIAGNOSIS: History of colon polyps. IV sedation per Anesthesia. PROCEDURE: After informed consent was obtained, the patient, was brought into the endoscopy unit. IV sedation was administered by Anesthesia under continuous monitoring. Digital rectal examination was normal. Initially the Olympus CF-160 flexible video colonoscope was then inserted in the rectum, gradually advanced into the cecum without any difficulty. Careful examination was performed as the scope was gradually being withdrawn. Ileocecal valve and the appendiceal orifice were visualized and appeared normal. Prep was excellent. Mucosa of the cecum, ascending colon, transverse colon, descending colon, sigmoid colon, and rectum appeared normal. Retroflexion was performed in the rectum and no lesions were seen. The patient tolerated the procedure well. IMPRESSION: Normal-appearing colon from rectum to cecum with no evidence of colorectal neoplasia . RECOMMENDATIONS: Findings of this examination were discussed with the patient as well as her family. She was advised to have a repeat surveillance colonoscopy in 5 years from now because of the prior history of colon polyps
[2022-04-12 08:01] VITALS: BP 129/67; PULSE 68
== END ==
LOC: ORWHC2ENDO 05:53
PROVIDERS: ATTEND Internal Medicine Gastroenterology
DX: Z12.11 Encounter for screening for malignant neoplasm of colon (principal); Z86.010 Personal history of colon polyps; Z79.899 Other long term (current) drug therapy; Z88.8 Allergy status to other drugs, medicaments and biological substances; Z91.040 Latex allergy status; Z88.1 Allergy status to other antibiotic agents
CPT/HCPCS: J2704; J2001; G0105; 45378

== ENCOUNTER → 2023-04-15 | Outpatient (CLI) | payer BC ==
[2023-04-15 15:45] VITALS: BP 124/82; PULSE 76; RESP 16; TEMP 98.3
--- NOTE | 2023-04-15 16:47 | P.HPOB ---
History of Present Illness H&P Date: 04/15/23 Chief Complaint: The patient is here for her routine gynecologic exam. This is a 57-year-old with an LMP of 2018. The patient is without gynecologic complaints and denies any postmenopausal bleeding. Review of Systems The patient has lost 12 pounds over the last year. She denies respiratory, cardiac, or G.I. problems. 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 Mitral valve regurgitation, heart arrythmia, glaucoma. 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 No other history of STDs. History of Any Multi-Drug Resistant Organisms: None Reported Past Surgical History: Breast Surgery Additional Past Surgical History / Comment(s): reggie mastectomy 2015, Reggie breast silicone implants 2016, endometrial ablation 2005. Colonoscopy 2021(next after 5yr). Left axillary lymph node biopsy 2018. 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 Past Anesthesia/Blood Transfusion Reactions: Family History of Problems w/ Anesthesia Additional Past Anesthesia/Blood Transfusion Reaction / Comment(s): Patient had hard time coming out of anesthesia; had to have Narcan. Pt's Mother had the same issue. Past Psychological History: No Psychological Hx Reported Smoking Status: Never smoker Past Alcohol Use History: Occasional (3 per week) Additional Past Alcohol Use History / Comment(s): Patient is a nonsmoker. No medical marijuana, marijuana or street drug use. She admits to social alcohol use. Past Drug Use History: None Reported Additional History: She has been since 1997. 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 - Past Family History Mother Family Medical History: Hypertension, Rheumatoid Arthritis (RA) Additional Family Medical History / Comment(s): Maternal cousin had breast cancer. Father Family Medical History: Hypertension Brother(s) Family Medical History: No Reported History Daughter(s) Family Medical History: No Reported History Son(s) Family Medical History: No Reported History Medications and Allergies Home Medications Medication Instructions Recorded Confirmed Type Fexofenadine HCl [Roseanna Allergy] 180 mg PO DAILY 02/21/17 04/15/23 History Multi Vitamin No Iron ( Oa) 1 tab PO DAILY 04/11/22 04/15/23 History Allergies Allergy/AdvReac Type Severity Reaction Status Date / Time latex Allergy Rash/Hives Verified 04/15/23 15:42 minocycline HCl Allergy Anaphylaxis Verified 04/15/23 15:42 [From Minocin] diphenhydramine HCl AdvReac paradoxical Verified 04/15/23 15:42 [From Benadryl] excitation Exam Vital Signs Temp Pulse Resp BP Pulse Ox 04/15/23 15:42 98.3 F 76 16 124/82 99 Intake and Output 04/15/23 04/15/23 04/15/23 06:59 14:59 22:59 Other: Weight 74.389 kg Height 5 feet 4 inches, weight 164 pounds, BMI 28.2. This is a well-developed well-nourished white female who is alert and oriented times 3 in no acute distress. HEENT: Within normal limits. NECK: Supple without mass or thyromegaly. CHEST AND LUNGS: Clear to auscultation. HEART: Regular rate and rhythm. BREASTS: Are without mass or discharge. Breasts are consistent with bilateral reconstruction with implants. AXILLARY EXAM: Negative for adenopathy. BACK: Negative for CVA tenderness. ABDOMEN: Soft, nontender, without palpable masses. PELVIC EXAM: Normal external genitalia with mild atrophy. Cervix and vagina appear normal with mild atrophy. There is no unusual discharge. There is minimal prolapse in the form of a grade 1 cystocele and grade 1 rectocele. This is stable from her previous exam. The uterus is midposition, nongravid size and nontender. There are no palpable adnexal masses or tenderness. RECTAL EXAM: Rectovaginal exam is negative for mass or tenderness and is negative for occult blood. EXTREMITIES: Nontender. IMPRESSION: 1. 57-year-old menopausal female with stable grade 1 cystocele and grade 1 rectocele. 2. History of bilateral CIS of the breasts status post bilateral mastectomies with reconstruction. There is no evidence of recurrence on exam today. PLAN: 1. Pap smear cotest was performed. 2. Mammograms have been discontinued because of the bilateral mastectomies. 3. Osteoporosis prevention was discussed. I have stressed the importance of adequate calcium, vitamin D and regular exercise. Recommended amounts of calcium and vitamin D were also discussed. She states she had a normal bone density test several years ago. We will plan on doing a bone density test in 1 year at the age of 58. 4. She was advised to return in one year for her annual well woman exam.
== END ==
LOC: WWCWWP 15:38
PROVIDERS: ATTEND Obstetrics & Gynecology
DX: N95.1 Menopausal and female climacteric states (principal); Z42.1 Encounter for breast reconstruction following mastectomy; E78.5 Hyperlipidemia, unspecified; N81.10 Cystocele, unspecified; N81.6 Rectocele; Z85.9 Personal history of malignant neoplasm, unspecified; Z12.31 Encounter for screening mammogram for malignant neoplasm of breast; Z91.040 Latex allergy status; Z88.8 Allergy status to other drugs, medicaments and biological substances; Z80.3 Family history of malignant neoplasm of breast

== ENCOUNTER → 2025-05-04 | Outpatient (CLI) | payer BC ==
[2025-05-04 15:17] LABS: Basophils # (A) 0.01 X 10*3/uL (0.00-0.10); Basophils % (A) 0.1 %; Eosinophils # (A) 0.17 X 10*3/uL (0.04-0.35); Eosinophils % (A) 2.3 %; HCT 43.1 % (37.2-46.3); HGB 13.9 g/dL (12.0-15.0); Immature Grans, Automated 0.10 %; Lymphocytes # (A) 2.53 X 10*3/uL (0.90-5.00); Lymphocytes % (A) 34.1 %; MCH 29.2 pg (27.0-32.0); MCHC 32.3 g/dL (32.0-37.0); MCV 90.5 FL (80.0-97.0); Monocytes # (A) 0.34 X 10*3/uL (0.20-1.00); Monocytes % (A) 4.6 %; NRBC Per 100 WBC 0 X 10*3/uL (0.00-0.01); Neutrophils # (A) 4.37 X 10*3/uL (1.80-7.70); Neutrophils % (A) 58.8 %; Platelet Count 317 X 10*3/uL (140-440); RBC 4.76 X 10*6/uL (4.10-5.20); RDW 13.0 % (11.5-14.5); WBC 7.43 X 10*3/uL (4.50-10.00)
[2025-05-04 15:52] LABS: ALT 56 U/L (8-44); AST 38 U/L (13-35); Albumin 4.2 g/dL (3.8-4.9); Albumin/Globulin Ratio 1.68 Ratio (1.60-3.17); Alkaline Phosphatase 129 U/L (41-126); Anion Gap 10.60 mmol/L (4.00-12.00); BUN/Creat Ratio 17.56 Ratio (12.00-20.00); Blood Urea Nitrogen 15.8 mg/dL (9.0-27.0); Calcium 9.3 mg/dL (8.7-10.3); Carbon Dioxide 24.4 mmol/L (21.6-31.8); Chloride 105 mmol/L (96-109); Cholesterol 279.00 mg/dL (0.00-200.00); Globulin 2.5 g/dL (1.6-3.3); Glucose 103 mg/dL (70-110); HDL Cholesterol 47.50 mg/dL (40.00-60.00); LDL Cholesterol,Calculated 193.5 mg/dL (0.0-131.0); Potassium 4.4 mmol/L (3.5-5.5); Sodium 140 mmol/L (135-145); Total Protein 6.7 g/dL (6.2-8.2); Triglycerides 190.00 mg/dL (0.00-149.00); VLDL Calculation 38.00 mg/dL (5.00-40.00); Vitamin B12 757.0 pg/mL (200.0-944.0)
== END | disposition home or self-care (01) ==
LOC: LABWHC1 08:01
PROVIDERS: ATTEND Physician Assistant
DX: E78.2 Mixed hyperlipidemia (principal); E53.8 Deficiency of other specified B group vitamins; E55.9 Vitamin D deficiency, unspecified; R19.7 Diarrhea, unspecified; R73.9 Hyperglycemia, unspecified
CPT/HCPCS: 36415; 80053; 80061; 82306; 82607; 83036; 84443; 85025; 87328; 87329